=== PATIENT | female | born 1995 | race Caucasian/White ===

== ENCOUNTER → 2024-04-07 | Outpatient (CLI) | payer OTHER ==
--- NOTE | 2024-04-14 21:47 | MR ---
EXAMINATION TYPE: MR knee RT wo con DATE OF EXAM: 04/07/2024 COMPARISON: Outside right knee x-ray April 03, 2024 HISTORY: Medial Pain and swelling Right knee x 2-3 weeks TECHNIQUE: Multiplanar, multisequence images of the knee is performed without IV contrast. FINDINGS: MEDIAL MENISCUS: Anterior and posterior horns are intact without tear. LATERAL MENISCUS: Truncated appearance and fraying of the posterior horn with abnormal central signal . CRUCIATE LIGAMENTS: The anterior and posterior cruciate ligaments are intact and unremarkable. COLLATERAL LIGAMENTS: The medial collateral ligament and lateral collateral ligament complex are inta ct and unremarkable. EXTENSOR MECHANISM: Visualized quadriceps and patellar tendons are intact. EFFUSION: No significant suprapatellar joint effusion. POPLITEAL CYST: No popliteal/jimenez cyst. TRICOMPARTMENT SPACES: Mild tricompartment joint space loss. Mild to moderate lateral spurring latera l tibiofemoral compartment. CARTILAGE: Tricompartmental articular cartilage is preserved. BONE MARROW SIGNAL: Some heterogeneous increased T2 signal involving the posterior aspect of the dist al lateral femoral condyle. OTHER: No additional significant abnormality is appreciated. IMPRESSION: 1. Suspect prior surgical change of posterior horn of lateral meniscus, recurrent tear cannot be excl uded without prior comparison. Correlate clinically. 2. Abnormal bone marrow edema posterior aspect of the distal lateral femoral condyle. 3. Mild tricompartment degenerative changes most prominent lateral tibiofemoral compartment as detail ed above
== END | disposition home or self-care (01) ==
LOC: RADMRIMAIN 16:20
PROVIDERS: ATTEND Orthopaedic Surgery
DX: M17.11 Unilateral primary osteoarthritis, right knee (principal)

== ENCOUNTER → 2024-05-30 | Outpatient (CLI) | payer OTHER | END | disposition home or self-care (01) | LOC: LABWHC1 10:52 | PROVIDERS: ATTEND Family Medicine | CPT/HCPCS: 36415; 80051; 85025 ==

== ENCOUNTER 2024-06-03 08:00 | Day surgery (SDC) | payer OTHER ==
[2024-06-03] MEDS ORDERED: SCOPOLAMINE 1 MG/72 HR PATCH TRANSDERM ONE (09:13)
[2024-06-03] MEDS ORDERED: DEXAMETHASONE SOD PHOSPHATE 4 MG/ML 1 ML VIAL ONE (09:13)
[2024-06-03] MEDS ORDERED: ONDANSETRON 4 MG/2 ML VIAL ONE (09:13)
[2024-06-03] MEDS ORDERED: BUPIVACAINE (PF) 0.25% 30 ML VIAL ONE (09:34)
[2024-06-03] MEDS ORDERED: LACTATED RINGERS 1,000 ML BAG ONE (09:34)
[2024-06-03] MEDS ORDERED: SUCCINYLCHOLINE CHLORIDE 200 MG/10 ML VIAL IV ONE (10:39)
[2024-06-03] MEDS ORDERED: PROPOFOL 10 MG/ML 20 ML VIAL IV ONE (10:39)
[2024-06-03] MEDS ORDERED: LIDOCAINE 1% INJ 10MG/ML (20 ML MDV) ONE (10:39)
[2024-06-03] MEDS ORDERED: fentaNYL (PF) 50 MCG/ML 2 ML AMP ONE (10:39)
[2024-06-03] MEDS ORDERED: KETOROLAC 15 MG/ML 1 ML VIAL ONE (11:36)
[2024-06-03] MEDS ORDERED: ACETAMINOPHEN TAB 500 MG TAB ONE (12:27)
--- NOTE | 2024-06-12 15:53 | OP ---
OPERATIVE REPORT DATE OF SERVICE : 06/03/2024 PREOPERATIVE DIAGNOSIS: Internal derangement, right knee. POSTOPERATIVE DIAGNOSES: 1. Medial and lateral meniscal tears, right knee. 2. Reactive synovitis, medial, lateral, and suprapatellar compartments, right knee. PROCEDURES PERFORMED: 1. Right knee arthroscopy with partial medial and lateral meniscectomy. 2. Knee arthroscopy with partial synovectomy, medial, lateral, and suprapatellar compartments. ANESTHESIA: General. ESTIMATED BLOOD LOSS: 6 mL. COMPLICATIONS: 0. The patient tolerated the procedure well. INDICATIONS: Deysi Hardy is a patient seen with progressive right knee pain. After having treatment options discussed, she elected to proceed with a right knee arthroscopy. Consent was obtained. DESCRIPTION OF PROCEDURE: The patient was taken to the operative suite. She underwent a general anesthetic by Department of Anesthesia. She received preoperative IV antibiotics. The right lower extremity was placed in well-padded arthroscopic leg rahman. Prepped and draped in normal sterile orthopedic fashion. Lateral parapatellar incision was made. Trocar was inserted, followed by introducing our scope and arthroscopy was now initiated. The suprapatellar compartment revealed diffuse thick reactive synovitis in the patellofemoral joint articulating with congruent without significant chondromalacia changes. The scope was guided into the medial gutter and no loose bodies. The scope was guided into the medial compartment. There was a medial parapatellar incision made, followed by trocar, and then, a probe. There was a tear involving the posterior horn area of the medial meniscus. There were no significant chondromalacia changes along the medial compartment. There was thick reactive synovitis anteriorly. I performed a partial medial meniscectomy, getting down a stable meniscal tissue, and I performed a partial synovectomy, decompressing the reactive synovitis. The residual meniscus was stable. There was good decompression of synovitis. The scope went forward and guided into the intercondylar notch. The ACL and PCL were identified, probed, stable. The scope was probed into the lateral compartment. There was a complex tear involving the body and posterior aspect of the lateral meniscus. There was an area of grade 3 chondromalacia on the posterior aspect of the tibial plateau without tears. There were grade 1 chondral changes to the lateral femoral condyle without tears. There was thick reactive synovitis anteriorly. I performed a partial lateral meniscectomy, getting down to a stable meniscal tissue. I performed a partial synovectomy, decompressing the reactive synovitis. The residual meniscus was stable. There was good decompression with synovitis. The scope was guided back into the superior compartment. I introduced my motorized shaver and performed a partial synovectomy, decompressing the thick reactive synovitis. The shaver was now removed. There was good decompression of the synovitis. I now took one more look along the entire knee. There was no residual debris. Instruments now removed from the knee. The portal sites were approximated with Steri-Strips. The joint was infiltrated with 0.25% plain Marcaine 20 mL. Sterile dressings were applied, followed by BRYAN hose. The patient was awakened and transferred to a bed, then recovery stable condition. No tourniquet was utilized. MMODL / IJN: [id number] /
--- NOTE | 2024-06-12 15:53 | HP ---
HISTORY AND PHYSICAL DATE OF SURGERY: 06/03/2024. HISTORY OF PRESENT ILLNESS: Deysi Hardy is a patient seen with progressive right knee pain. We discussed options regarding treatment. She elected to proceed with right knee arthroscopy. Consent was obtained. PAST MEDICAL HISTORY: Noncontributory. PAST SURGICAL HISTORY: Knee arthroscopy. DAILY MEDICATIONS: None. ALLERGIES: None reported. PHYSICAL EVALUATION OF THE RIGHT KNEE: Range of motion is 0 to 120 degrees. She is tender along the medial and lateral joint lines. Positive lateral Ronaldo's. Ligaments stable. Hip rotation without pain. Distal neurovascular exam is intact. IMPRESSION: Internal derangement of right knee with lateral meniscal tear. PLAN: Right knee arthroscopy with partial lateral meniscectomy and debridement. MMODL / IJN: [id number] /
== END 2024-06-03 13:12 ==
LOC: OR 08:00
PROVIDERS: ATTEND Orthopaedic Surgery
DX: S83.281A Other tear of lateral meniscus, current injury, right knee, initial encounter (principal); S83.241A Other tear of medial meniscus, current injury, right knee, initial encounter; M65.161 Other infective (teno)synovitis, right knee; J45.909 Unspecified asthma, uncomplicated; Z88.1 Allergy status to other antibiotic agents; Z88.8 Allergy status to other drugs, medicaments and biological substances; X58.XXXA Exposure to other specified factors, initial encounter
CPT/HCPCS: 81025